=== PATIENT | male | born 1990 | race Caucasian/White ===

== ENCOUNTER 2018-11-25 19:44 | Emergency (ER) | payer BC, OTHER ==
[~2018-11-25] VITALS: Ht 177.8 cm; Wt 93.0 kg
--- NOTE | 2018-11-25 21:55 | ED EENT ---
History of Present Illness General Chief Complaint: Oral/Throat Problems Stated Complaint: RIGHT EAR PAIN/SORETHROAT Nursing Triage Note: Pt arrived by private vehicle for chief complaint of sore throat and earache. sore throat and ear infection that started 2 weeks agoo. Pt stated allergy problems causing dizziness, ear infection since this morning. He stated it feels like it is getting worse. Pt put eardrops in ear at 1900 and toook off brand of benadryl at 2030 last night. Pt is alert, oriented and ambulatory at arrival. Source: patient History of Present Illness Date Seen by Provider: Nov 25, 2018 Time Seen by Provider: 21:55 Initial Comments 27-year-old male presenting with complaints of sudden right ear pain tonight. He has been having some sore throat and cough for the last 2 weeks but felt that it was allergy related. However and the last 12 hours he's been having symptoms that are more related to his right ear and it has been getting worse. Suddenly today he said ear pain and felt that it was infected. He had tried some eardrops without any relief. He denies having any fever or chills. Allergies and Home Medications Allergies Coded Allergies: Penicillins (Verified Allergy, Unknown, Vomiting, 11/25/18) Home Medications Azithromycin 250 Mg Tablet, 250 MG PO DAILY Prescribed by: CASTRO GONSALEZ on 11/25/186 Patient Home Medication List Home Medication List Reviewed: Yes Review of Systems Review of Systems Constitutional: see HPI; No chills, No fever Eyes: No Symptoms Reported Ears: See HPI Nose: congestion; denies epistaxis; clear discharge Mouth: no symptoms reported Throat: denies neck stiffness; painful swallowing Respiratory: cough; No hemoptysis, No short of breath Cardiovascular: no symptoms reported Gastrointestinal: no symptoms reported Musculoskeletal: no symptoms reported Skin: no symptoms reported Neurological: No Symptoms Reported Past Xiqpopp-Zrpjjb-Geyban Hx Past Med/Social Hx: Reviewed Nursing Past Med/Soc Hx Patient Social History Alcohol Use: Denies Use Recreational Drug Use: No Smoking Status: Never a Smoker 2nd Hand Smoke Exposure: No Recent Foreign Travel: No Contact w/Someone Who Travel: No Recent Infectious Disease Expo: No Recent Hopitalizations: No Physical Abuse: No Sexual Abuse: No Mistreated: No Fear: No Seasonal Allergies Seasonal Allergies: No Past Medical History Surgeries: No Respiratory: No Cardiac: No Neurological: No Genitourinary: No Gastrointestinal: No Musculoskeletal: No Endocrine: No HEENT: No Cancer: No Psychosocial: No Integumentary: No Blood Disorders: No Physical Exam Vital Signs Vital Signs - First Documented 11/25/18 20:03 Temp 99.0 Pulse 69 Resp 18 B/P (MAP) 129/71 (90) Pulse Ox 98 O2 Delivery Room Air Height, Weight, BMI Height: 5'10.00" Weight: 205lbs. 0oz. 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, alert Skin: normal color, warm/dry Progress/Results/Core Measures Results/Orders My Orders Orders - CASTRO GONSALEZ MD Azithromycin Tablet (Zithromax Tablet) (11/25/18 22:30) Medications Given in ED Current Medications Medications Dose Ordered Sig/Haroldo Route Start Time Stop Time Status Last Admin Dose Admin Azithromycin 500 mg ONCE ONCE PO 11/25/18 22:30 11/25/18 22:31 DC 11/25/18 22:30 500 MG Vital Signs/I&O 11/25/18 11/25/18 20:03 22:40 Temp 99.0 98.4 Pulse 69 65 Resp 18 13 B/P (MAP) 129/71 (90) 136/83 (100) Pulse Ox 98 97 O2 Delivery Room Air Room Air Blood Pressure Mean: 90 Progress Progress Note : Progress Note Will treat with Zithromax since he is allergic to penicillin. We will have him check back with primary provider for continued concerns. Encourage fluids and rest. Treat symptomatically for pain with the ear infection. Departure Impression Primary Impression: Acute suppurative otitis media of right ear Disposition: HOME, SELF-CARE Condition: Stable Departure-Patient Inst. Decision time for Depature: 22:22 Referrals: NO,LOCAL PHYSICIAN (PCP/Family) Primary Care Physician Patient Instructions: Ear Infections (Otitis Media) (DC) Add. Discharge Instructions: Take the full course of antibiotics. Try Ibuprofen or Naproxen for pain and inflammation Check with clinic for continued symptoms/problems All discharge instructions reviewed with patient and/or family. Voiced understanding. Scripts Azithromycin (Azithromycin) 250 Mg Tablet 250 MG PO DAILY for 4 Days, #4 TAB 0 Refills Prov: CASTRO GONSALEZ MD 11/25/18 CASTRO GONSALEZ MD Nov 25, 2018 21:55
[2018-11-25] MEDS ORDERED: AZIT250T12 PO (22:24)
[2018-11-25] MEDS ORDERED: AZITHROMYCIN 250 MG TAB (ZITHROMAX) PO ONE (22:30)
[2018-11-25 22:40] VITALS: BP 136/83
== END 2018-11-25 22:40 | disposition home or self-care (01) ==
LOC: ER FS 19:48
DX: H66.004 Acute suppurative otitis media without spontaneous rupture of ear drum, recurrent, right ear (principal); Z88.0 Allergy status to penicillin
CPT/HCPCS: 99283

== ENCOUNTER 2020-05-08 02:25 | Emergency (ER) | payer BC ==
[~2020-05-08 02:25] MED LIST: AZIT250T12 PO
--- NOTE | 2020-05-08 02:49 | ED EENT ---
History of Present Illness General Chief Complaint: Oral/Throat Problems Stated Complaint: FOB IN THROAT Nursing Triage Note: Pt thinks something might be stuck in his throat Source: patient History of Present Illness Date Seen by Provider: May 08, 2020 Time Seen by Provider: 02:35 Initial Comments Feels like something is stuck in the back of his throat. Denies choking on anything. States he ate dinner without choking, but felt like he couldn't s wallow something in the back of his throat. Has been able to swallow liquids without limitation, but has not attempted to eat anything solid. NO difficulty breathing or swallowing.....just a sensation. No previous occurrence. No recent illness. Allergies and Home Medications Allergies Coded Allergies: Penicillins (Verified Allergy, Unknown, Vomiting, 11/25/18) Home Medications Azithromycin 250 Mg Tablet, 250 MG PO DAILY Prescribed by: CASTRO GONSALEZ on 11/25/18 1627 Patient Home Medication List Home Medication List Reviewed: Yes Review of Systems Review of Systems Constitutional: No dizziness, No fever, No malaise, No weakness Eyes: No Symptoms Reported Ears: No Symptoms Reported Nose: no symptoms reported Mouth: see HPI; denies pain; swelling; denies bloody discharge, denies clear discharge, denies purulent discharge, denies serosanguinous discharge, denies previous injury Throat: see HPI; denies pain; swelling; denies discharge, denies neck stiffness, denies hoarse, denies aphonia, denies muffled, denies painful swallowing, denies difficulty with fluids, denies previous injury Respiratory: No cough, No hemoptysis, No short of breath, No stridor, No wheezing Gastrointestinal: No abdominal pain, No loss of appetite, No nausea, No vomiting Past Epaqtal-Lfegpv-Euszsl Hx Past Med/Social Hx: Reviewed Nursing Past Med/Soc Hx Patient Social History Alcohol Use: Denies Use Recreational Drug Use: No 2nd Hand Smoke Exposure: No Recent Foreign Travel: No Contact w/Someone Who Travel: No Recent Infectious Disease Expo: No Recent Hopitalizations: No Physical Abuse: No Sexual Abuse: No Seasonal Allergies Seasonal Allergies: No Past Medical History Surgeries: No Respiratory: No Cardiac: No Neurological: No Genitourinary: No Gastrointestinal: No Musculoskeletal: No Endocrine: No HEENT: No Cancer: No Psychosocial: No Integumentary: No Blood Disorders: No Physical Exam Vital Signs Vital Signs - First Documented 05/08/20 02:30 Temp 36.8 Pulse 64 Resp 16 B/P (MAP) 153/97 (115) Pulse Ox 99 O2 Delivery Room Air Height, Weight, BMI Height: 5'10.00" Weight: 205lbs. 0oz. [id number]; BMI Method:Stated General Appearance: WD/WN, no apparent distress Nose: normal inspection; No active bleeding Mouth/Throat: normal mouth inspection, pharynx normal; No excessive drooling, No foreign body, No mandibular swelling, No maxillary swelling, No pharynx swelling, No pharynx tenderness, No tongue swollen, No tonsillar exudate, No tonsillar swelling, No trismus, No uvula swelling, No voice changes Neck: non-tender, full range of motion, supple, normal inspection; No carotid bruit, No limited range of motion, No lymphadenopathy (R), No lymphadenopathy (L), No tender lateral, No tender midline, No thyromegaly Neurologic/Psychiatric: alert, normal mood/affect Skin: normal color, warm/dry Progress/Results/Core Measures Results/Orders Vital Signs/I&O 05/08/20 02:30 Temp 36.8 Pulse 64 Resp 16 B/P (MAP) 153/97 (115) Pulse Ox 99 O2 Delivery Room Air Blood Pressure Mean: 115 Departure Impression Primary Impression: Globus sensation Disposition: 01 HOME, SELF-CARE Condition: Stable Departure-Patient Inst. Decision time for Depature: 02:49 Referrals: REINALDO LINDO MD (PCP/Family) Primary Care Physician Add. Discharge Instructions: follow up with your PCP in 2 days if not improving, ER sooner if worse. All discharge instructions reviewed with patient and/or family. Voiced understanding. SIDDHARTH QUINTERO DO May 08, 2020 02:49
[2020-05-08 02:50] VITALS: BP 153/97
== END 2020-05-08 02:51 | disposition home or self-care (01) ==
LOC: EDUNIT# 02:25 → ER FS 02:27
DX: F45.8 Other somatoform disorders (principal); Z88.0 Allergy status to penicillin
CPT/HCPCS: 99282